=== PATIENT | female | born 1975 | race Caucasian/White ===

== ENCOUNTER → 2021-01-11 08:10 | Outpatient (BNVA) | payer MEDICAID, SELFPAY | PROVIDERS: PCP Registered Nurse; Visit Provider Specialist | DX: G43.711 Chronic migraine without aura, intractable, with status migrainosus (principal); G31.84 Mild cognitive impairment of uncertain or unknown etiology; G92 Toxic encephalopathy; F31.9 Bipolar disorder, unspecified; M79.7 Fibromyalgia; Z87.891 Personal history of nicotine dependence | CPT/HCPCS: 96116; 99205 ==

== ENCOUNTER → 2021-05-16 14:35 | Outpatient (BNVA) | payer MEDICAID, SELFPAY | PROVIDERS: PCP Registered Nurse; Visit Provider Specialist | DX: G31.84 Mild cognitive impairment of uncertain or unknown etiology (principal); G43.711 Chronic migraine without aura, intractable, with status migrainosus; M79.7 Fibromyalgia; Z87.891 Personal history of nicotine dependence | CPT/HCPCS: 99214 ==

== ENCOUNTER → 2021-10-31 15:32 | Outpatient (BNVA) | payer MEDICAID, SELFPAY | PROVIDERS: PCP Registered Nurse; Visit Provider Specialist | DX: G43.711 Chronic migraine without aura, intractable, with status migrainosus (principal); F03.90 Unspecified dementia, unspecified severity, without behavioral disturbance, psychotic disturbance, mood disturbance, and anxiety; G47.10 Hypersomnia, unspecified; F31.9 Bipolar disorder, unspecified; M79.7 Fibromyalgia | CPT/HCPCS: 99214 ==

== ENCOUNTER → 2022-02-27 15:00 | Outpatient (BNVA) | payer MEDICAID, SELFPAY | PROVIDERS: PCP Registered Nurse; Visit Provider Specialist | DX: G43.711 Chronic migraine without aura, intractable, with status migrainosus (principal); G47.10 Hypersomnia, unspecified; F31.9 Bipolar disorder, unspecified; M79.7 Fibromyalgia; G31.84 Mild cognitive impairment of uncertain or unknown etiology | CPT/HCPCS: 96116; 99214 ==